=== PATIENT | female | born 2000 | race Two or more races ===

== ENCOUNTER 2022-07-08 09:45 | Inpatient (IN) | payer OTHER ==
[~2022-07-08] VITALS: Ht 167.6 cm; Wt 63.0 kg
[2022-07-08] MEDS ORDERED: ZOFRAN8 MG PO (10:04)
[2022-07-08] MEDS ORDERED: PRENA1 TRUE CO1 EACH PO (10:04)
--- NOTE | 2022-07-08 10:04 | NUR ---
SE RECIBE PTE ALERTA Y ORIENTADA X3, EN COMPANIA DE MATERNA QUIEN REFIERE LENNY ESTA PRESENTANDO SANGRADO VAGINAL Y DOLOR AL ORINAR. SE ISIDRO S/V Y SE UBICA. PTE 11 WEEKS .
--- NOTE | 2022-07-08 10:39 | NUR ---
SE ORINTA PTE SOBRE EL TRATAMIENTO ORDENADO POR EL DR RYAN PTE ALERTA Y ORIENTADO POR 3 SE REALIZA MUESTRA DE LABORAOTIRO Y SE NOTIFICA ESTUDIO PENDIENTE DE SONOGRAMAFIA
== END 2022-07-11 19:15 | DRG 832 ==
LOC: ER 09:45 → OB/GYN 18:54
PROVIDERS: ADMIT Obstetrics & Gynecology Obstetrics; ATTEND Obstetrics & Gynecology Obstetrics
PROC: 4A1HXCZ Monitoring of Products of Conception, Cardiac Rate, External Approach (ICD-10-PCS; principal; 2022-07-08)
PROC: BU4CZZZ Ultrasonography of Uterus and Ovaries (ICD-10-PCS; 2022-07-08)
DX: O46.8X1 Other antepartum hemorrhage, first trimester (principal); N39.0 Urinary tract infection, site not specified; O23.31 Infections of other parts of urinary tract in pregnancy, first trimester; Z3A.11 11 weeks gestation of pregnancy; Z20.822 Contact with and (suspected) exposure to COVID-19

== ENCOUNTER 2023-01-15 06:23 | Inpatient (IN) | payer OTHER ==
[~2023-01-15] VITALS: Ht 154.9 cm; Wt 79.4 kg
[~2023-01-15 06:23] MED LIST: PRENA1 TRUE CO1 EACH PO; ZOFRAN8 MG PO
== END 2023-01-18 17:04 | disposition home or self-care (01) | DRG 788 ==
LOC: OB/GYN 06:23 → LDR 06:23 → OB/GYN 12:40
PROVIDERS: ADMIT Obstetrics & Gynecology Obstetrics; ATTEND Obstetrics & Gynecology Obstetrics
PROC: 4A1HXCZ Monitoring of Products of Conception, Cardiac Rate, External Approach (ICD-10-PCS; 2023-01-15)
PROC: 10D00Z1 Extraction of Products of Conception, Low, Open Approach (ICD-10-PCS; principal; 2023-01-15 15:15)
DX: O62.0 Primary inadequate contractions (principal); Z3A.39 39 weeks gestation of pregnancy; Z37.0 Single live birth; Z20.822 Contact with and (suspected) exposure to COVID-19